=== PATIENT | male | born 1985 | race Caucasian/White ===

== ENCOUNTER 2018-09-01 13:41 | Emergency (ER) | payer SELFPAY, OTHER | END 2018-09-01 16:22 | disposition home or self-care (01) | LOC: FTE 13:41 | DX: S20.212A Contusion of left front wall of thorax, initial encounter (principal); R07.89 Other chest pain; S20.211A Contusion of right front wall of thorax, initial encounter; W11.XXXA Fall on and from ladder, initial encounter; Y92.9 Unspecified place or not applicable | CPT/HCPCS: 71046; 71110; 71120; 93005; 99284-25 ==